=== PATIENT | female | born 2000 | race Caucasian/White ===

== ENCOUNTER 2018-09-11 18:43 | Emergency (ER) | payer OTHER ==
[~2018-09-11] VITALS: Ht 172.7 cm; Wt 108.9 kg
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
--- NOTE | 2018-09-11 19:05 | NUR ---
KEYA MALDONADO AT BEDSIDE FOR MSE.
[2018-09-11] MEDS ORDERED: HYDROMORPHONE 1 MG/1 ML DISP.SYRIN ONE (19:14)
[2018-09-11] MEDS ORDERED: ONDANSETRON 4 MG/2 ML VIAL ONE (19:14)
[2018-09-11] MEDS ORDERED: ONDANSETRON 4 MG/2 ML VIAL IM ONE (19:15)
[2018-09-11] MEDS ORDERED: HYDROMORPHONE 1 MG/1 ML DISP.SYRIN IM ONE (19:15)
--- NOTE | 2018-09-11 19:25 | NUR ---
SLEEVER AT BEDSIDE.
--- NOTE | 2018-09-11 20:01 | NUR ---
SIDE HEMMER AT BEDSIDE.
--- NOTE | 2018-09-11 20:25 | NUR ---
Patient discharged to home in stable conditon. Written and verbal after care instructions given. Patient verbalizes understanding of instructions. ALL BELONGINGS W/ PT. PT SELF-AMBULATED W/O DIFFICULTY. PT WILL BE DRIVEN HOME BY FAMILY IN PRIVATE VEHICLE.
[2018-09-11 20:26] VITALS: BP 153/78
== END 2018-09-11 20:27 | disposition home or self-care (01) ==
LOC: ER 18:45
DX: S52.501A Unspecified fracture of the lower end of right radius, initial encounter for closed fracture (principal); Z88.1 Allergy status to other antibiotic agents; V43.52XA Car driver injured in collision with other type car in traffic accident, initial encounter; Y93.89 Activity, other specified; Y92.410 Unspecified street and highway as the place of occurrence of the external cause; Y99.8 Other external cause status
CPT/HCPCS: 25605; 73110 ×2; 93005; 96372 ×2; 99284; J1170; J2405; A4663